=== PATIENT | male | born 1990 | race Caucasian/White ===

== ENCOUNTER → 2020-02-08 12:52 | Outpatient (BNVA) | payer BC, SELFPAY | PROVIDERS: Family Provider Family Medicine; PCP Family Medicine; Visit Provider Nurse Practitioner | DX: J02.9 Acute pharyngitis, unspecified (principal); J03.90 Acute tonsillitis, unspecified | CPT/HCPCS: 87071; 87880 ==

== ENCOUNTER → 2020-02-10 14:53 | Outpatient (BNVA) | payer BC, SELFPAY | PROVIDERS: Family Provider Family Medicine; PCP Family Medicine; Visit Provider Internal Medicine | DX: Z11.59 Encounter for screening for other viral diseases (principal) | CPT/HCPCS: 87635 ==

== ENCOUNTER 2020-10-14 09:51 | Emergency (ER) | payer BC, SELFPAY ==
[2020-10-14 10:05] VITALS: BP 162/121; PULSE 82; RESP 22; TEMP 36.2; O2SAT 99; BMI 35.5
[2020-10-14 10:10] VITALS: BP 169/126; PULSE 89; RESP 20; O2SAT 100
--- NOTE | 2020-10-14 10:16 | CTR_ITS ---
PROCEDURE INFORMATION: Exam: CT Head Without Contrast Exam date and time: 10/14/2020 10:23 AM Age: 30 years old Clinical indication: Pain; Headache not specified; Additional info: RODAS TECHNIQUE: Imaging protocol: Computed tomography of the head without contrast. Radiation optimization: All CT scans at this facility use at least one of these dose optimization techniques: automated exposure control; mA and/or kV adjustment per patient size (includes targeted exams where dose is matched to clinical indication); or iterative reconstruction. COMPARISON: No relevant prior studies available. RADIATION DOSE METRICS: Total DLP (mGy-cm): 962.34 FINDINGS: Brain: Examination of the brain shows no abnormal focal parenchymal densities. There is no intracranial hemorrhage, edema or mass effect. The lateral ventricles are dilated bilaterally. There is also [id number] dilatation of the 3rd and 4th ventricles. The sulcal pattern is normal. Cerebral ventricles: See Brain finding. Bones/joints: Unremarkable. No acute fracture. Paranasal sinuses: Visualized sinuses are unremarkable. No fluid levels. Mastoid air cells: Visualized mastoid air cells are well aerated. Soft tissues: Unremarkable. CT/CT head wo con* [id number] IMPRESSION: 1. No intracranial hemorrhage. 2. Hydrocephalus with significant dilatation of the lateral ventricles. This could be normal pressure hydrocephalus. Radiation Dose CTDIVOL = (mGy): DLP = 962.34 (mGy-cm)
--- NOTE | 2020-10-14 10:19 | W.ED.HA ---
HPI - Headache General: Chief Complaint: Headache Stated Complaint: SEVERE MIGRAINE Time Seen by Provider: 10/14/20 09:57 Source: patient Mode of arrival: ambulatory Limitations: no limitations History of Present Illness: HPI Narrative: 30-year-old male history of migraine states had a migraine over the last 2 days. He states he got worse this morning is currently 9 out of 10. He states he does have photophobia and phonophobia. Denies any neck stiffness. Patient denies any fever or vomiting. He states this feels like his previous migraines is just worse than typical. MD elicited complaint: headache Associated symptoms: Deny chest pain, fever(s), nausea, rash or vomiting Review of Systems Const: Denies: fever(s), chills, body aches or change in appetite Eyes: Denies: blurry vision or eye discomfort ENMT: Denies: throat pain or dental pain Card: Denies: chest pain Resp: Denies: dyspnea GI: Denies: abdominal pain, nausea, vomiting or diarrhea : Denies: dysuria Musc: Denies: neck pain or back pain Skin/Breast: Denies: rash Neuro: Reports: headache(s) Psych: Denies: depression Amado/Lymph: Denies: easy bruising All/Imm: Denies: urticaria PFSH ED PFSH: Social History Smoking and tobacco status: never smoked Alcohol intake: current Physical Exam Const: COMMON NORMALS: no acute distress, patient oriented x3 and healthy appearing HENMT: COMMON NORMALS: normocephalic and atraumatic HEAD & SCALP: normocephalic and atraumatic Eye: COMMON NORMALS: Equal, round and reactive pupils present and EOMs intact bilaterally PUPIL: Yes Equal, round and reactive pupils present Neck/C-Spine: COMMON NORMALS: full ROM, supple and no meningeal signs Chest: COMMONS NORMALS: normal inspection of the chest and normal palpation of entire chest wall Resp: COMMON NORMALS: normal respiratory effort, No retractions, No use of accessory muscles and clear to auscultation bilaterally AUSCULTATION: clear to auscultation bilaterally Cardio: COMMON NORMALS: regular rate, regular rhythm and No murmurs present (Cardio) RATE: regular rate RHYTHM: regular rhythm GI: COMMON NORMALS: Normal to inspection, nondistended, normoactive bowel sounds present, Soft to palpation, non-tender and no masses PALPATION: Yes Soft to palpation Extremity: COMMON NORMALS: normal to inspection and full ROM Neuro: COMMON NORMALS: patient oriented x3, moves all extremities and no focal motor deficits MENINGEAL SIGNS: Yes no meningeal signs Psych: COMMON NORMALS: mental status grossly normal, Normal thought process present and cooperative THOUGHT PROCESS: Normal thought process present Skin: COMMON NORMALS: no rashes or lesions noted and no wounds GENERAL SKIN EXAM: no rashes or lesions noted Course Vital Signs: Vital signs: Vital Signs Temperature 97.2 F L 10/14/20 10:05 Pulse Rate 89 10/14/20 10:10 Respiratory Rate 20 H 10/14/20 10:10 Blood Pressure 169/126 10/14/20 10:10 Pulse Oximetry 100 10/14/20 10:10 MDM - Headache MDM Narrative: Medical decision making narrative: Patient presents with a headache skin see with his previous migraines. Patient is currently headache free with no signs of subarachnoid hemorrhage or meningitis. Patient's head CT here does show hydrocephalus. We will get him follow-up with neurology. He understands agrees to plan. Imaging Data^: CT Head: Attestation: I personally reviewed and interpreted this imaging study as follows: Radiologist's impression: [address] [address] [address] Scan Report Signed Patient: Matt Smith Unit #: [id number] : 1990 Age/Sex: 30 / M ADM Date: 10/14/20 Loc: ER Room/Bed: Attending Dr: Ordering Provider/Ordering MD: Kyrie Walker MD Date of Service: 10/14/20 Procedure(s): CT head wo con* [id number] Accession Number(s): [id number] Report Number: [id number] PROCEDURE INFORMATION: Exam: CT Head Without Contrast Exam date and time: 10/14/2020 10:23 AM Age: 30 years old Clinical indication: Pain; Headache not specified; Additional info: RODAS TECHNIQUE: Imaging protocol: Computed tomography of the head without contrast. Radiation optimization: All CT scans at this facility use at least one of these dose optimization techniques: automated exposure control; mA and/or kV adjustment per patient size (includes targeted exams where dose is matched to clinical indication); or iterative reconstruction. COMPARISON: No relevant prior studies available. RADIATION DOSE METRICS: Total DLP (mGy-cm): 962.34 FINDINGS: Brain: Examination of the brain shows no abnormal focal parenchymal densities. There is no intracranial hemorrhage, edema or mass effect. The lateral ventricles are dilated bilaterally. There is also [id number] dilatation of the 3rd and 4th ventricles. The sulcal pattern is normal. Cerebral ventricles: See Brain finding. Bones/joints: Unremarkable. No acute fracture. Paranasal sinuses: Visualized sinuses are unremarkable. No fluid levels. Mastoid air cells: Visualized mastoid air cells are well aerated. Soft tissues: Unremarkable. CT/CT head wo con* [id number] IMPRESSION: 1. No intracranial hemorrhage. 2. Hydrocephalus with significant dilatation of the lateral ventricles. This could be normal pressure hydrocephalus. Discharge Plan Discharge Patient Disposition: Home Clinical Impression: Hydrocephalus Migraine Qualifiers: Migraine type: unspecified Status migrainosus presence: without status migrainosus Intractability: not intractable Qualified Code(s): G43.909 - Migraine, unspecified, not intractable, without status migrainosus Condition: Stable Prescriptions: No Action azithromycin 250 mg tablet See Rx Instructions PO .COMPLEX Qty: 6 RF: 0 Discharge Orders: Discharge ED (Routine); Ordered 10/14/20 Ordered By: Kyrie Walker Referrals: Marita Jimenez MD [Physician] - 1-3 days Domingo Davis DO [Primary Care Provider] - Discharge Diet: Advance as tolerated Discharge Activity: Resume usual activity Patient Instructions: Headache - Migraine (Adult), Hydrocephalus (ED) Coding Level of Care Code ED Foreign Language Interpreter for Chg Fwd Exam Comprehensive
[2020-10-14] MEDS: diphenhydrAMINE 50 mg/mL SDV 1mL IVP (10:57)
[2020-10-14] MEDS: metoclopramide 5 mg/mL SDV 2 mL 10 MG IVP (10:57)
[2020-10-14 11:45] VITALS: BP 157/99; PULSE 107; RESP 18; O2SAT 98
--- NOTE | 2020-10-17 15:23 | DCPLANNER ---
assistant manager had message to schedule a follow up appointment for patient with Dr. Jimenez. assistant manager called the office of Dr. Jimenez, spoke with Fabiola, gave clinic patients information. A follow up appointment is scheduled for Thursday, November 12, [address] at 2:[address] Jimenez. Clinic will call patient with appointment information.
--- NOTE | 2020-11-13 15:36 | DCPLANNER ---
Patient had a follow up appointment scheduled for 11.12.[address] Jimenez - patient did attend appointment.
== END 2020-10-14 11:47 | disposition home or self-care (01) ==
PROVIDERS: Emergency Provider Emergency Medicine; PCP Family Medicine
DX: G91.9 Hydrocephalus, unspecified (principal); G43.909 Migraine, unspecified, not intractable, without status migrainosus
CPT/HCPCS: 70450; 96374; 96375; 99283; J1200; J2765

== ENCOUNTER → 2020-11-12 14:12 | Outpatient (BNVA) | payer BC, SELFPAY | PROVIDERS: PCP Family Medicine; Referring Provider Emergency Medicine; Visit Provider Specialist | DX: G43.711 Chronic migraine without aura, intractable, with status migrainosus (principal); Q04.8 Other specified congenital malformations of brain | CPT/HCPCS: 99204 ==

== ENCOUNTER → 2021-02-11 13:55 | Outpatient (BNVA) | payer BC, SELFPAY | PROVIDERS: PCP Family Medicine; Visit Provider Specialist | DX: G43.909 Migraine, unspecified, not intractable, without status migrainosus (principal); Q04.8 Other specified congenital malformations of brain | CPT/HCPCS: 99212 ==

== ENCOUNTER → 2024-06-09 15:04 | Outpatient (BNVA) | payer BC, SELFPAY | PROVIDERS: PCP Family Medicine; Visit Provider Family Medicine | DX: I10 Essential (primary) hypertension (principal) | CPT/HCPCS: 80053; 80061 ==

== ENCOUNTER → 2024-08-02 08:26 | Outpatient (BNVA) | payer BC, SELFPAY | PROVIDERS: PCP Family Medicine; Visit Provider Family Medicine | DX: Z79.899 Other long term (current) drug therapy (principal) | CPT/HCPCS: 80307 ==